=== PATIENT | male | born 1950 | race African-American/Black ===

== ENCOUNTER 2021-10-01 08:41 | Inpatient (IN) | payer MEDICARE ==
[2021-09-30 09:01] LABS: BASOPHILS % 0.5 % (0.0-1.0); EOSINOPHILS # (AUTO) 0.2 (0.0-0.4); HEMATOCRIT 48.5 % (38.2-49.6); HEMOGLOBIN 15.1 g/dL (14.0-18.0); LYMPHOCYTES # (AUTO) 2.2 (1.0-3.2); LYMPHOCYTES % 38.8 % (18.0-39.1); MEAN CORPUSCULAR HGB CONC 31.1 g/dL (31-35); MEAN CORPUSCULAR VOLUME 93.3 fL (81-99); MONOCYTES # (AUTO) 0.6 (0.2-0.8); MONOCYTES % 9.6 % (4.4-11.3); NEUTROPHILS # (AUTO) 2.7 (2.1-6.9); NEUTROPHILS % 47.9 % (38.7-80.0); PLATELET COUNT 310 x10e3/uL (140-360); RED CELL DISTRIBUTION WIDTH 11.9 % (11.7-14.4)
[2021-09-30 10:30] LABS: ANION GAP 12.2 mmol/L (8-16); CALCIUM 8.9 mg/dL (8.4-10.2); CREATININE, SERUM 0.91 mg/dL (0.72-1.25); POTASSIUM 4.2 mmol/L (3.5-5.1)
[~2021-10-01] VITALS: Ht 172.7 cm; Wt 79.4 kg
[~2021-10-01 08:41] MED LIST: FARXIGA10 MG PO; FINASTERIDE5 MG PO; FLOMAX0.4 MG PO; LIPITOR10 MG PO; METFORMIN HCL500 MG PO; VITAMIN D325 MCG PO; ZESTRIL2.5 MG PO
[2021-10-01] MEDS ORDERED: PIPERACILLIN/TAZOBACTAM 3.375 GM VIAL ONE (09:20)
[2021-10-01] MEDS ORDERED: SODIUM CHLORIDE 0.9% 1000ML 1,000 ML ONE (09:27)
[2021-10-01] MEDS ORDERED: BELLADONNA/OPIUM 30 MG SUPP RC ONE (09:59)
[2021-10-01] MEDS ORDERED: IOPAMIDOL 610MG/1ML 300 MG/ML VIAL IV ONE (09:59)
[2021-10-01] MEDS ORDERED: B&O 60MG R/S 60 MG SUPP PR PRN (12:15)
[2021-10-01] MEDS ORDERED: ONDANSETRON HCL INJ 2MG/ML 2ML 2 MG/ML VIAL IV PRN (12:15)
[2021-10-01] MEDS ORDERED: DIPHENHYDRAMINE HCL 25 MG CAP PO PRN (12:15)
[2021-10-01] MEDS ORDERED: MIDAZOLAM HCL 2 MG/2 ML VIAL ONE (12:38)
[2021-10-01] MEDS ORDERED: FENTANYL CITRATE/PF 100MCG/2 ML INJ ONE (12:38)
[2021-10-01 13:42] LABS: BASOPHILS % 0.3 % (0.0-1.0); EOSINOPHILS % 0.2 % (0.0-6.0); HEMATOCRIT 46.5 % (38.2-49.6); HEMOGLOBIN 14.3 g/dL (14.0-18.0); LYMPHOCYTES # (AUTO) 1.8 (1.0-3.2); LYMPHOCYTES % 13.5 % (18.0-39.1); MEAN CORPUSCULAR HEMOGLOBIN 28.9 pg (28-32); MEAN CORPUSCULAR HGB CONC 30.8 g/dL (31-35); MEAN CORPUSCULAR VOLUME 94.1 fL (81-99); MONOCYTES # (AUTO) 0.2 (0.2-0.8); MONOCYTES % 1.6 % (4.4-11.3); PLATELET COUNT 272 x10e3/uL (140-360); RED BLOOD COUNT 4.94 x10e6/uL (4.3-5.7)
[2021-10-01 14:04] LABS: ANION GAP 16.7 mmol/L (8-16); CALCIUM 8.2 mg/dL (8.4-10.2); CREATININE, SERUM 0.95 mg/dL (0.72-1.25); POTASSIUM 4.7 mmol/L (3.5-5.1)
[2021-10-01 15:02] VITALS: BP 159/87
[2021-10-01] MEDS: ACETAMINOPHEN/CODEINE 300MG - 30MG TAB PO PRN (15:27)
[2021-10-01 15:56] VITALS: BP 159/87
[2021-10-01 16:03] VITALS: BP 159/86
[2021-10-01] MEDS: DOCUSATE SODIUM 100 MG CAP PO SCH (16:40)
[2021-10-01] MEDS: SODIUM CHLORIDE 0.9% 1000ML 1,000 ML IV SCH (16:41)
[2021-10-01] MEDS ORDERED: PROPOFOL IV EMULSION 10 MG/ML 20 ML VIAL ONE (18:20)
[2021-10-01] MEDS ORDERED: LIDOCAINE HCL 2% LOCAL INJ 5 ML SDV VIAL INJ ONE (18:20)
[2021-10-01] MEDS ORDERED: SEVOFLURANE INHAL SOLN 250 ML PEN BTL ONE (18:20)
[2021-10-01] MEDS ORDERED: ONDANSETRON HCL INJ 2MG/ML 2ML 2 MG/ML VIAL ONE (18:20)
[2021-10-01] MEDS ORDERED: DEXAMETHASONE SOD PHOS INJ 4 MG/ML SDV ONE (18:20)
[2021-10-01] MEDS ORDERED: POVIDONE IODINE 0.05% 0.05 % ML PO ONE (18:20)
[2021-10-01 20:01] VITALS: BP 142/72
[2021-10-01 20:44] VITALS: BP 142/72
[2021-10-02] VITALS (8 sets, daily range): BP systolic 105–133; BP diastolic 62–76
[2021-10-02] MEDS: SODIUM CHLORIDE 0.9% 1000ML 1,000 ML IV SCH ×2 (00:55→14:55)
[2021-10-02] MEDS: PHENAZOPYRIDINE HCL 100 MG TAB PO PRN (04:49)
[2021-10-02] MEDS: ACETAMINOPHEN/CODEINE 300MG - 30MG TAB PO PRN ×3 (04:50→22:03)
[2021-10-02 05:04] LABS: BASOPHILS % 0.3 % (0.0-1.0); EOSINOPHILS % 0.3 % (0.0-6.0); HEMATOCRIT 44.1 % (38.2-49.6); HEMOGLOBIN 13.6 g/dL (14.0-18.0); LYMPHOCYTES # (AUTO) 2.3 (1.0-3.2); MEAN CORPUSCULAR HEMOGLOBIN 28.6 pg (28-32); MEAN CORPUSCULAR HGB CONC 30.8 g/dL (31-35); MEAN CORPUSCULAR VOLUME 92.8 fL (81-99); MONOCYTES # (AUTO) 1.2 (0.2-0.8); NEUTROPHILS # (AUTO) 7.7 (2.1-6.9); NEUTROPHILS % 68.1 % (38.7-80.0); PLATELET COUNT 292 x10e3/uL (140-360); RED BLOOD COUNT 4.75 x10e6/uL (4.3-5.7); RED CELL DISTRIBUTION WIDTH 11.9 % (11.7-14.4)
[2021-10-02 05:27] LABS: ANION GAP 12.2 mmol/L (8-16); CALCIUM 7.9 mg/dL (8.4-10.2); CREATININE, SERUM 0.97 mg/dL (0.72-1.25); POTASSIUM 4.2 mmol/L (3.5-5.1)
[2021-10-02] MEDS: DOCUSATE SODIUM 100 MG CAP PO SCH ×2 (08:20→16:29)
[2021-10-02] MEDS ORDERED: DEXTROSE 50% SYRINGE 50 ML IV PRN (10:15)
[2021-10-02] MEDS: INSULIN LISPRO 100 UNIT/1 ML 3ML VIAL SQ SCH ×3 (12:00→20:52)
[2021-10-02] MEDS: METFORMIN HCL 500 MG TAB PO SCH (16:30)
[2021-10-02] MEDS: ATORVASTATIN 10 MG TAB PO SCH (20:47)
[2021-10-03] VITALS (9 sets, daily range): BP systolic 115–156; BP diastolic 71–85
[2021-10-03] MEDS: SODIUM CHLORIDE 0.9% 1000ML 1,000 ML IV SCH ×2 (04:15→17:35)
[2021-10-03 06:12] LABS: BASOPHILS % 0.4 % (0.0-1.0); EOSINOPHILS # (AUTO) 0.1 (0.0-0.4); EOSINOPHILS % 1.4 % (0.0-6.0); HEMATOCRIT 40.8 % (38.2-49.6); HEMOGLOBIN 12.7 g/dL (14.0-18.0); LYMPHOCYTES # (AUTO) 2.4 (1.0-3.2); LYMPHOCYTES % 27.7 % (18.0-39.1); MEAN CORPUSCULAR HEMOGLOBIN 28.9 pg (28-32); MEAN CORPUSCULAR HGB CONC 31.1 g/dL (31-35); MEAN CORPUSCULAR VOLUME 92.7 fL (81-99); MONOCYTES # (AUTO) 0.9 (0.2-0.8); MONOCYTES % 10.2 % (4.4-11.3); NEUTROPHILS # (AUTO) 5.1 (2.1-6.9); NEUTROPHILS % 59.9 % (38.7-80.0); PLATELET COUNT 289 x10e3/uL (140-360); RED CELL DISTRIBUTION WIDTH 11.9 % (11.7-14.4)
[2021-10-03 06:40] LABS: CALCIUM 8.1 mg/dL (8.4-10.2); CREATININE, SERUM 0.91 mg/dL (0.72-1.25)
[2021-10-03] MEDS: INSULIN LISPRO 100 UNIT/1 ML 3ML VIAL SQ SCH ×4 (07:30→21:11)
[2021-10-03] MEDS: ACETAMINOPHEN/CODEINE 300MG - 30MG TAB PO PRN ×2 (07:34→17:29)
[2021-10-03] MEDS: DOCUSATE SODIUM 100 MG CAP PO SCH ×2 (08:44→16:21)
[2021-10-03] MEDS: FINASTERIDE 5 MG TAB PO SCH (08:44)
[2021-10-03] MEDS: METFORMIN HCL 500 MG TAB PO SCH ×2 (08:44→16:21)
[2021-10-03] MEDS: LISINOPRIL 2.5 MG TAB PO SCH (08:45)
[2021-10-03] MEDS: TAMSULOSIN HCL 0.4 MG CAP PO SCH (08:48)
[2021-10-03] MEDS: ATORVASTATIN 10 MG TAB PO SCH (21:03)
[2021-10-04] VITALS (7 sets, daily range): BP systolic 138–185; BP diastolic 70–100
[2021-10-04] MEDS: ACETAMINOPHEN/CODEINE 300MG - 30MG TAB PO PRN ×3 (00:09→10:41)
[2021-10-04] MEDS: PHENAZOPYRIDINE HCL 100 MG TAB PO PRN (00:09)
[2021-10-04] MEDS: SODIUM CHLORIDE 0.9% 1000ML 1,000 ML IV SCH (06:55)
[2021-10-04] MEDS: INSULIN LISPRO 100 UNIT/1 ML 3ML VIAL SQ SCH ×5 (07:30→20:51)
[2021-10-04] MEDS: METFORMIN HCL 500 MG TAB PO SCH ×2 (10:20→16:59)
[2021-10-04] MEDS: DOCUSATE SODIUM 100 MG CAP PO SCH ×2 (10:20→16:59)
[2021-10-04] MEDS: TAMSULOSIN HCL 0.4 MG CAP PO SCH (10:20)
[2021-10-04] MEDS: FINASTERIDE 5 MG TAB PO SCH (10:20)
[2021-10-04] MEDS: LISINOPRIL 2.5 MG TAB PO SCH (10:20)
[2021-10-04 10:22] LABS: BASOPHILS # (AUTO) 0.1 (0.0-0.1); BASOPHILS % 0.6 % (0.0-1.0); EOSINOPHILS # (AUTO) 0.1 (0.0-0.4); EOSINOPHILS % 1.6 % (0.0-6.0); HEMATOCRIT 41.5 % (38.2-49.6); HEMOGLOBIN 12.9 g/dL (14.0-18.0); LYMPHOCYTES # (AUTO) 1.4 (1.0-3.2); LYMPHOCYTES % 18.4 % (18.0-39.1); MEAN CORPUSCULAR HEMOGLOBIN 28.8 pg (28-32); MEAN CORPUSCULAR HGB CONC 31.1 g/dL (31-35); MEAN CORPUSCULAR VOLUME 92.6 fL (81-99); MONOCYTES # (AUTO) 0.6 (0.2-0.8); MONOCYTES % 7.6 % (4.4-11.3); NEUTROPHILS # (AUTO) 5.5 (2.1-6.9); NEUTROPHILS % 70.6 % (38.7-80.0); PLATELET COUNT 280 x10e3/uL (140-360); RED BLOOD COUNT 4.48 x10e6/uL (4.3-5.7); RED CELL DISTRIBUTION WIDTH 11.7 % (11.7-14.4)
[2021-10-04 10:34] LABS: ANION GAP 10.1 mmol/L (8-16); CALCIUM 8.5 mg/dL (8.4-10.2); CREATININE, SERUM 0.9 mg/dL (0.72-1.25); POTASSIUM 4.1 mmol/L (3.5-5.1)
[2021-10-04] MEDS: ATORVASTATIN 10 MG TAB PO SCH (20:47)
[2021-10-05] VITALS: BP 163/89
[2021-10-05 04:00] VITALS: BP 151/88
[2021-10-05 06:22] LABS: BASOPHILS % 0.4 % (0.0-1.0); EOSINOPHILS # (AUTO) 0.3 (0.0-0.4); HEMATOCRIT 40.9 % (38.2-49.6); HEMOGLOBIN 12.6 g/dL (14.0-18.0); LYMPHOCYTES # (AUTO) 1.6 (1.0-3.2); LYMPHOCYTES % 17.4 % (18.0-39.1); MEAN CORPUSCULAR HEMOGLOBIN 28.6 pg (28-32); MEAN CORPUSCULAR HGB CONC 30.8 g/dL (31-35); MONOCYTES # (AUTO) 0.9 (0.2-0.8); NEUTROPHILS # (AUTO) 6.2 (2.1-6.9); PLATELET COUNT 302 x10e3/uL (140-360); RED CELL DISTRIBUTION WIDTH 11.8 % (11.7-14.4)
[2021-10-05 06:39] LABS: CALCIUM 8.9 mg/dL (8.4-10.2); CREATININE, SERUM 1.01 mg/dL (0.72-1.25)
[2021-10-05] MEDS: INSULIN LISPRO 100 UNIT/1 ML 3ML VIAL SQ SCH ×2 (07:30→11:30)
[2021-10-05 07:55] VITALS: BP 123/74
[2021-10-05 08:13] VITALS: BP 123/74
[2021-10-05] MEDS ORDERED: FARXIGA 5 MG PO SCH (09:30)
[2021-10-05] MEDS: FINASTERIDE 5 MG TAB PO SCH (09:50)
[2021-10-05] MEDS: METFORMIN HCL 500 MG TAB PO SCH (09:50)
[2021-10-05] MEDS: DOCUSATE SODIUM 100 MG CAP PO SCH (09:50)
[2021-10-05] MEDS: TAMSULOSIN HCL 0.4 MG CAP PO SCH (09:51)
[2021-10-05] MEDS: LISINOPRIL 2.5 MG TAB PO SCH (09:51)
[2021-10-05 11:50] VITALS: BP 139/75
[2021-10-06] MEDS ORDERED: CHOLECALCIFEROL 1,000 UNIT TAB PO SCH (09:00)
== END 2021-10-05 11:58 | disposition home or self-care (01) | DRG 713 ==
LOC: OR 08:41 → PACU V 13:37 → MED/SURG2 14:50
PROVIDERS: ADMIT Internal Medicine; ATTEND Internal Medicine
PROC: 0VB08ZZ Excision of Prostate, Via Natural or Artificial Opening Endoscopic (ICD-10-PCS; principal; 2021-10-01 10:14)
PROC: 0VB03ZX Excision of Prostate, Percutaneous Approach, Diagnostic (ICD-10-PCS; 2021-10-01 10:14)
PROC: BT141ZZ Fluoroscopy of Kidneys, Ureters and Bladder using Low Osmolar Contrast (ICD-10-PCS; 2021-10-01 10:14)
DX: N40.1 Benign prostatic hyperplasia with lower urinary tract symptoms (principal); N13.8 Other obstructive and reflux uropathy; N39.0 Urinary tract infection, site not specified; R33.8 Other retention of urine; N42.89 Other specified disorders of prostate; I10 Essential (primary) hypertension; E78.5 Hyperlipidemia, unspecified; E11.9 Type 2 diabetes mellitus without complications; Z20.822 Contact with and (suspected) exposure to COVID-19
CPT/HCPCS: 0223U; 36415; 71046; 74420; 76872; 76998; 80048; 82948; 83735; 85025; 88305; 93005; 94799; 96361; C1758; J1100; J2001; J2250; J2405; J2543; J3010; J7030